=== PATIENT | female | born 1940 | race Caucasian/White ===

== ENCOUNTER 2017-05-19 16:41 | Inpatient (IN) | payer OTHER ==
[~2017-05-19] VITALS: Ht 162.6 cm; Wt 122.5 kg
--- NOTE | 2017-05-19 16:41 | NUR ---
[id number] FROM SNF FOR ALOC, PER EMS GAVE NARCAN TO EYES WERE PINPOINT AND PT RESPONDED. PT CURRENTLY AAOX2, FORGETFUL, NAD NOTED. PT PLACED ON MONITOR. MD AT BEDSIDE.
[2017-05-19] MEDS ORDERED: IV NS 0.9% 500 ML BAG IV ONE (18:00)
[2017-05-19 18:07] LABS: APPEARANCE,URINE Clear (CLEAR); BILIRUBIN,URINE Negative (NEGATIVE); BLOOD, URINE Moderate Ery/uL (NEGATIVE); COLOR,URINE Other (YELLOW); KETONES,URINE Negative (NEGATIVE); LEUKOCYTE ESTERASE ,URINE Moderate (NEGATIVE); NITRITE, URINE Negative (NEGATIVE); PROTEIN,URINE Negative (NEGATIVE); UGLUCOSE Negative (NEGATIVE); UROBILINOGEN,URINE 0.2 EU/dL (0.2)
--- NOTE | 2017-05-19 18:15 | NUR ---
CALLED SNF TO CLARIFY AND C/O OF AB LAB= BUN 88, K OF 6.7, HGB 7.0. MD AWARE. LABS ORDERED.
[2017-05-19 18:17] LABS: BASOPHILS % (AUTO) 0.2 % (0.0-2.0); EOSINOPHILS # (AUTO) 0.1 /CMM (0.0-0.7); EOSINOPHILS % (AUTO) 0.4 % (0.0-6.0); HEMATOCRIT 23 % (33-45); HEMOGLOBIN 7.8 g/dL (11.5-14.8); LYMPHOCYTES # (AUTO) 0.2 /CMM (0.8-4.8); LYMPHOCYTES % (AUTO) 1.7 % (20.0-44.0); MEAN CORPUSCULAR HEMOGLOBIN 32 PG (26.0-33.0); MEAN CORPUSCULAR HGB CONC 34 g/dl (31.0-36.0); MEAN CORPUSCULAR VOLUME 95 fL (82-100); MONOCYTES # (AUTO) 0.8 /CMM (0.1-1.30); MONOCYTES % (AUTO) 6.4 % (2.0-12.0); NEUTROPHILS % (AUTO) 91.3 % (43.0-81.0); PLATELET COUNT (AUTO) 352 /CMM (150-450); RDW COEFFICIENT OF VARIATION 12.7 (11.5-15.0); RED BLOOD CELL COUNT(AUTO) 2.43 MIL/uL (4.0-5.2); WHITE BLOOD COUNT (AUTO) 13.1 K/uL (4.3-11.0)
[2017-05-19 18:21] LABS: BACTERIA,URINE 2+ /HPF (None Seen); SQUAMOUS EPITHELIAL CELL,UR Few /HPF (None Seen); WBC,URINE 21-50 /HPF (0-3)
[2017-05-19] MEDS ORDERED: ENOX30DI PO (18:21)
[2017-05-19] MEDS ORDERED: ASPI-992 PO (18:21)
[2017-05-19] MEDS ORDERED: BISA10SU8 RC (18:21)
[2017-05-19] MEDS ORDERED: FERR325T23 PO (18:21)
[2017-05-19] MEDS ORDERED: SENN-167 PO (18:21)
[2017-05-19] MEDS ORDERED: LOVA20TA2 PO (18:21)
[2017-05-19] MEDS ORDERED: DOCU100C36 PO (18:21)
[2017-05-19] MEDS ORDERED: NIFE60TA69 PO (18:21)
[2017-05-19] MEDS ORDERED: LEVO50TA8 PO (18:21)
[2017-05-19] MEDS ORDERED: FAMO20TA8 PO (18:21)
[2017-05-19] MEDS ORDERED: HYDR-552 PO (18:21)
[2017-05-19] MEDS ORDERED: HYDR12.55 PO (18:21)
[2017-05-19] MEDS ORDERED: TRAZ-144 PO (18:21)
[2017-05-19] MEDS ORDERED: POTA8TAB8 PO (18:21)
[2017-05-19] MEDS ORDERED: NA P133E RC (18:21)
[2017-05-19] MEDS ORDERED: ACET-868 PO (18:21)
[2017-05-19] MEDS ORDERED: TRAM50TA2 PO (18:21)
[2017-05-19] MEDS ORDERED: MAG-5 PO (18:21)
[2017-05-19] MEDS ORDERED: MAGN400O6 PO (18:21)
[2017-05-19 18:33] LABS: ALANINE AMINOTRANSFERASE 14 U/L (12-78); ALBUMIN 1.9 g/dL (3.4-5.0); ALKALINE PHOSPHATASE 544 U/L (46-116); ASPARTATE AMINOTRANSFERASE 46 U/L (15-37); BILIRUBIN,DIRECT 0.4 mg/dL (0.0-0.2); BILIRUBIN,TOTAL 0.7 mg/dL (0.2-1.0); CALCIUM, SERUM 9.3 mg/dL (8.5-10.1); CARBON DIOXIDE 21 mmol/L (21-32); CHLORIDE 101 mmol/L (98-107); CREATININE 7.3 mg/dL (0.6-1.3); GLUCOSE 117 mg/dL (74-106); SODIUM SERUM 133 mmol/L (136-145); TOTAL PROTEIN, SERUM 6.2 g/dL (6.4-8.2)
[2017-05-19 18:36] LABS: POTASSIUM 6.7 mmol/L (3.5-5.1); UREA NITROGEN, BLOOD 106 mg/dL (7-18)
--- NOTE | 2017-05-19 18:43 | NUR ---
[phone] JAHAIRA ALTERNATE NUMBER
--- NOTE | 2017-05-19 18:45 | NUR ---
FAMILY AT BEDSIDE.
[2017-05-19] MEDS ORDERED: DEXTROSE 50%-WATER 50 ML DISP.SYRIN ONE (18:52)
[2017-05-19] MEDS ORDERED: SODIUM POLYSTYRENE SULFONATE 15 G/60 ML BOTTLE ONE ×3 (18:52→23:20)
[2017-05-19] MEDS ORDERED: FUROSEMIDE 20 MG/2 ML VIAL ONE (18:52)
[2017-05-19] MEDS ORDERED: INSULIN REGULAR, HUMAN 100 UNIT/ML 10 ML VIAL ONE (18:53)
[2017-05-19] MEDS ORDERED: SODIUM POLYSTYRENE SULFONATE 15 G/60 ML BOTTLE PO ONE ×2 (19:00→21:30)
[2017-05-19] MEDS ORDERED: ALBUTEROL FS 2.5 MG/3 ML VIAL.NEB NEB ONE (19:00)
[2017-05-19] MEDS ORDERED: IV NS 0.9% 1,000 ML BAG IV ONE (19:00)
[2017-05-19] MEDS ORDERED: INSULIN REGULAR, HUMAN 100 UNIT/ML 10 ML VIAL IV ONE (19:00)
[2017-05-19] MEDS ORDERED: DEXTROSE 50%-WATER 50 ML DISP.SYRIN IV ONE (19:00)
[2017-05-19] MEDS ORDERED: FUROSEMIDE 40 MG/4 ML VIAL IV ONE (19:00)
--- NOTE | 2017-05-19 19:05 | NUR ---
REPORT REC'D FROM MIKY FLEMING FOR JB.
--- NOTE | 2017-05-19 19:07 | NUR ---
PT LEFT FOR CT VIA GURNEY.
--- NOTE | 2017-05-19 19:15 | NUR ---
PT RETURNED FROM CT VIA [facility]
[2017-05-19] MEDS ORDERED: CEFTRIAXONE 1 G VIAL ONE (19:25)
[2017-05-19] MEDS ORDERED: ALBUTEROL FS 2.5 MG/3 ML VIAL.NEB ONE (19:26)
[2017-05-19] MEDS ORDERED: CEFTRIAXONE 1 G in IV NS 0.9% 50 ML IV SCH (19:30)
--- NOTE | 2017-05-19 19:34 | NUR ---
RT AT BEDSIDE FOR BREATHING TX.
--- NOTE | 2017-05-19 19:49 | NUR ---
JULIA ONTIVEROS RN
[2017-05-19 20:00] VITALS: BP_SYST 108; BP_SYST 115; BP_DIAS 42; BP_DIAS 57
[2017-05-19 20:08] VITALS: BP 108/52
--- NOTE | 2017-05-19 20:08 | NUR ---
RN NOTE RECEIVED PATIENT FROM ER, ABLE TO STATE HER NAME HOWEVER, SHE IS CONFUSED/ANXIOUS, REMOVED IV WHILE ER NURSES TRANSFERRED HER FROM [facility] [place] TO [facility], NEW IV WAS PLACED IN RIGHT HAND 22 GAUGE, ONGOING IV FLUIDS, NO RESPIRATORY DISTRESS NOTED, NO PAIN OR DISCOMFORT, SINUS RYTHM 65, ADMITTING DX ACUTE RESPIRATORY FAILURE, ORDERS CARRIED OUT, SKIN PICTURES TAKEN, ALL SAFETY MEASURES TAKEN, CALL LIGHT WITHIN REACH, SIDE RAILES UP X 2, BED ALARM ACTIVATED AND CHECKED PRIOR, WILL CONTINUE TO MONITOR PATIENT
[2017-05-19 21:00] VITALS: BP 125/67
[2017-05-19] MEDS ORDERED: IV 1/2NS 1000 ML 1,000 ML IV ONE (21:00)
[2017-05-19] MEDS: PANTOPRAZOLE 40 MG VIAL IV SCH (22:09)
[2017-05-19] MEDS: HEPARIN SODIUM, PORCINE 5000 UNITS/1 ML VIAL SQ SCH (22:12)
[2017-05-19] MEDS: IV 1/2NS 1000 ML 1,000 ML IV PRN (23:54)
[2017-05-20] VITALS (16 sets, daily range): BP systolic 89–147; BP diastolic 57–90
[2017-05-20 07:06] LABS: EOSINOPHILS # (AUTO) 0.1 /CMM (0.0-0.7); EOSINOPHILS % (AUTO) 0.7 % (0.0-6.0); HEMATOCRIT 21 % (33-45); LYMPHOCYTES # (AUTO) 0.7 /CMM (0.8-4.8); LYMPHOCYTES % (AUTO) 6.3 % (20.0-44.0); MEAN CORPUSCULAR HEMOGLOBIN 31 PG (26.0-33.0); MEAN CORPUSCULAR HGB CONC 33 g/dl (31.0-36.0); MEAN CORPUSCULAR VOLUME 96 fL (82-100); MONOCYTES % (AUTO) 9.3 % (2.0-12.0); NEUTROPHILS # (AUTO) 8.8 /CMM (1.8-8.9); NEUTROPHILS % (AUTO) 83.7 % (43.0-81.0); PLATELET COUNT (AUTO) 345 /CMM (150-450); RDW COEFFICIENT OF VARIATION 14.3 (11.5-15.0); WHITE BLOOD COUNT (AUTO) 10.6 K/uL (4.3-11.0)
[2017-05-20 07:11] LABS: ALANINE AMINOTRANSFERASE 28 U/L (12-78); ALBUMIN 1.8 g/dL (3.4-5.0); ALKALINE PHOSPHATASE 559 U/L (46-116); ASPARTATE AMINOTRANSFERASE 59 U/L (15-37); BILIRUBIN,TOTAL 0.5 mg/dL (0.2-1.0); CALCIUM, SERUM 8.6 mg/dL (8.5-10.1); CARBON DIOXIDE 21 mmol/L (21-32); CHLORIDE 102 mmol/L (98-107); CREATININE 6.7 mg/dL (0.6-1.3); GLUCOSE 123 mg/dL (74-106); POTASSIUM 5.1 mmol/L (3.5-5.1); SODIUM SERUM 138 mmol/L (136-145); TOTAL PROTEIN, SERUM 5.9 g/dL (6.4-8.2)
[2017-05-20 07:16] LABS: UREA NITROGEN, BLOOD 103 mg/dL (7-18)
[2017-05-20 07:20] LABS: HEMOGLOBIN 6.9 g/dL (11.5-14.8)
--- NOTE | 2017-05-20 07:43 | NUR ---
RN NOTE NO ACUTE CHANGES DURING MY SHIFT, SR ON THE MONITOR, ALERT/ORIENTED X 1, CONFUSED AT TIMES, ONGOING IV FLUIDS, TOLERATED WELL, ALL SAFETY MEASURES TAKEN, BILATERAL SOFT WRIST RESTRAINTS, VISUAL CHECKS Q 15 MIN, CHECKED FOR CIRCULATIONS Q 2 HOURS, ENDORSED TO AM SHIFT FOR JB
--- NOTE | 2017-05-20 08:00 | NUR ---
Pt awake, confused, vss. Denies pain. prbc ready for transfusion but pt does not have blood bank red bracelet. blood bank notified to re band the pt. and new order placed in the [facility].
[2017-05-20 08:49] LABS: BAND % (MANUAL) 1 % (0.0-5.0); LYMPHOCYTES % (MANUAL) 5 % (16-48); MONOCYTES % (MANUAL) 11 % (0-11.0); NEUTROPHILS % (MANUAL) 83 (42-76)
[2017-05-20] MEDS ORDERED: ACETAMINOPHEN 325 MG TABLET PO PRN (09:30)
[2017-05-20] MEDS ORDERED: HYDROCODONE/APAP 5/325MG 1 EACH TABLET PO PRN ×2 (09:30)
[2017-05-20] MEDS: PANTOPRAZOLE 40 MG VIAL IV SCH (09:56)
[2017-05-20] MEDS: HEPARIN SODIUM, PORCINE 5000 UNITS/1 ML VIAL SQ SCH ×2 (09:57→21:00)
--- NOTE | 2017-05-20 10:00 | NUR ---
DR CANALES HERE TO SEE PT, SON CONTACTED FOR SR CANALES TO OBTAIN MORE HISTORY. NEW IV SITE R FOREARM # 20.
[2017-05-20] MEDS: LEVOTHYROXINE SODIUM 50 MCG TABLET PO SCH (10:02)
[2017-05-20] MEDS: NIFEdipine XL 60 MG TAB PO SCH (10:25)
--- NOTE | 2017-05-20 10:44 | NUR ---
WOUND CARE CONSULT: PT PRESENTS WITH INCONTINENCE OF STOOL AND RT LEG IMMOBILIZER WITH SURGICAL DSGS TO RT LATERAL LEG, PRESENT ON ADMISSION. SLIGHT GLUTEAL CREASE EXCORIATION NOTED. ALL SKIN PROTECTION RECOMMENDATIONS DISCUSSED WITH NURSING STAFF. PT ON MG ISOFLEX LOW AIRLOSS BED. WILL SEE PRN. CURRENT AMEENA SCORE IS 13. IN AGREEMENT WITH PLAN OF CARE. Addendum: 05/20/17 at 1047 by TAL VERMA WNDNU Amended: Links added.
[2017-05-20] MEDS ORDERED: Z GUARD REMEDY 4 OZ OINT TP PRN (11:00)
[2017-05-20] MEDS: ONDANSETRON HCL/PF 4 MG/2 ML VIAL IV PRN (12:39)
--- NOTE | 2017-05-20 16:00 | NUR ---
2 UNITS PRBC COMPLETED, NO SIGNS AO REACTION ,NO SYMPTOMS FLUID VOLUME OVERLOAD. FAMILY AT BEDSIDE. PT STILL PLEASANTLY CONFUSED.
[2017-05-20] MEDS: CEFTRIAXONE 1 G in IV D5W 50 ML IV SCH (17:49)
--- NOTE | 2017-05-20 18:00 | NUR ---
PT ASSISTED WITH FULL BED/BATH AND SKIN CARE ORDERED.
[2017-05-20] MEDS: Z GUARD REMEDY 4 OZ OINT TP SCH (18:04)
--- NOTE | 2017-05-20 20:00 | NUR ---
ZAHRA RN INITIAL NOTE PT RECEIVED ASLEEP IN BED. A/O X1 EASILY AROUSABLE TO NAME WITH NOTED CONFUSION AT TIMES. ON 2L OF O2 VIA NC AND SATURATING WELL. BREATHING EVEN AND UNLABORED. TELE- SINUS RHYTHM 75 WITH PAC. IV LFA CLEAN, DRY WITH FLUIDS INFUSING. MEJIA CATHETER IN PLACE AND DRAINING BY GRAVITY. HOB ELEVATED. BED IN LOWEST POSITION AND LOCKED IN PLACE. BILATERAL SOFT WRIST RESTRAINTS IN PLACE AND SECURED. NO NOTED DISCOLORATION, PULSES PALPABLE BILATERALLY AND CAP REFILL CHECKED. CALL LIGHT WITHIN REACH. WILL CONTINUE TO MONITOR.
[2017-05-20] MEDS: ATORVASTATIN 10 MG TABLET PO SCH (21:04)
[2017-05-21] VITALS: BP 124/69
[2017-05-21] MEDS: ONDANSETRON HCL/PF 4 MG/2 ML VIAL IV PRN (03:59)
[2017-05-21 04:00] VITALS: BP 124/73
[2017-05-21] MEDS: IV 1/2NS 1000 ML 1,000 ML IV PRN ×2 (06:44→19:00)
--- NOTE | 2017-05-21 07:11 | NUR ---
ZAHRA RN CLOSING NOTE NO ACUTE DISTRESS NOTED. KEPT CLEAN AND DRY. ALL NEEDS ATTENDED TO PROMPTLY. REPOSITIONED Q2H. ALL DUE MEDS GIVEN ORDERED, IV INTACT. BILATERAL SOFT WRIST RESTRAINTS IN PLACE WITH PALPABLE PULSES CHECKED BILATERALLY. CALL LIGHT WITHIN REACH. WILL ENDORSE TO NEXT SHIFT FOR CONTINUITY OF CARE.
[2017-05-21 07:20] LABS: EOSINOPHILS % (AUTO) 0.4 % (0.0-6.0); HEMATOCRIT 28 % (33-45); HEMOGLOBIN 9.4 g/dL (11.5-14.8); LYMPHOCYTES # (AUTO) 0.4 /CMM (0.8-4.8); LYMPHOCYTES % (AUTO) 4.7 % (20.0-44.0); MEAN CORPUSCULAR HEMOGLOBIN 31 PG (26.0-33.0); MEAN CORPUSCULAR HGB CONC 33 g/dl (31.0-36.0); MEAN CORPUSCULAR VOLUME 92 fL (82-100); MONOCYTES # (AUTO) 0.9 /CMM (0.1-1.30); NEUTROPHILS # (AUTO) 7.3 /CMM (1.8-8.9); NEUTROPHILS % (AUTO) 84.9 % (43.0-81.0); PLATELET COUNT (AUTO) 363 /CMM (150-450); RDW COEFFICIENT OF VARIATION 17.1 (11.5-15.0); RED BLOOD CELL COUNT(AUTO) 3.08 MIL/uL (4.0-5.2); WHITE BLOOD COUNT (AUTO) 8.6 K/uL (4.3-11.0)
[2017-05-21 07:35] LABS: CALCIUM, SERUM 8.4 mg/dL (8.5-10.1); CARBON DIOXIDE 23 mmol/L (21-32); CHLORIDE 107 mmol/L (98-107); CREATININE 4.1 mg/dL (0.6-1.3); GLUCOSE 110 mg/dL (74-106); PHOSPHORUS 5.4 mg/dL (2.5-4.9); POTASSIUM 3.9 mmol/L (3.5-5.1); SODIUM SERUM 143 mmol/L (136-145)
[2017-05-21 07:36] LABS: MAGNESIUM 2.1 mg/dL (1.8-2.4)
[2017-05-21 07:37] LABS: UREA NITROGEN, BLOOD 86 mg/dL (7-18)
[2017-05-21 08:00] VITALS: BP 146/88
--- NOTE | 2017-05-21 08:00 | NUR ---
RN NOTES RECEIVED PT FROM [employer], A&0X1 CONFUSED, ON 2L NC SATING WELL NO SOB NOTED. SR ON THE TELE PEDRO PABLO HR 75. MEJIA DRAINING TO GRAVITY. RFA 20G IV INTACT WITH IVF AT 100ML/HR. BED LOCKED AND IN LOWEST POSITION, CALL LIGHT WITHIN REACH, SIDE RAILS UPX3, WILL CONT TO PEDRO PABLO.
[2017-05-21] MEDS: LEVOTHYROXINE SODIUM 50 MCG TABLET PO SCH (08:46)
[2017-05-21] MEDS: NIFEdipine XL 60 MG TAB PO SCH (08:46)
[2017-05-21] MEDS: Z GUARD REMEDY 4 OZ OINT TP SCH (08:47)
[2017-05-21] MEDS: HEPARIN SODIUM, PORCINE 5000 UNITS/1 ML VIAL SQ SCH ×2 (08:47→21:19)
[2017-05-21 12:00] VITALS: BP 104/64
[2017-05-21 16:00] VITALS: BP 114/60
[2017-05-21] MEDS: CEFTRIAXONE 1 G in IV D5W 50 ML IV SCH (18:32)
--- NOTE | 2017-05-21 19:34 | NUR ---
ZAHRA RN INITIAL NOTE PT RECEIVED ASLEEP IN BED. A/O X1 WITH NOTED CONFUSION AT TIMES. ON 2L OF O2 VIA NC AND SATURATING WELL. BREATHING EVEN AND UNLABORED. TELE- SINUS RHYTHM 75 WITH PAC. IV RFA CLEAN, DRY WITH FLUIDS INFUSING. MEJIA CATHETER IN PLACE AND DRAINING BY GRAVITY. HOB ELEVATED. BED IN LOWEST POSITION AND LOCKED IN PLACE. BILATERAL SOFT WRIST RESTRAINTS IN PLACE AND SECURED. NO NOTED DISCOLORATION, PULSES PALPABLE BILATERALLY AND CAP REFILL CHECKED. CALL LIGHT WITHIN REACH. WILL CONTINUE TO MONITOR.
[2017-05-21 20:00] VITALS: BP 118/65
[2017-05-21] MEDS: PANTOPRAZOLE 40 MG VIAL IV SCH (21:10)
[2017-05-21] MEDS: ATORVASTATIN 10 MG TABLET PO SCH (21:11)
[2017-05-22] VITALS: BP 130/67
[2017-05-22 04:00] VITALS: BP 116/65
[2017-05-22] MEDS: IV 1/2NS 1000 ML 1,000 ML IV PRN (05:59)
--- NOTE | 2017-05-22 06:43 | NUR ---
ZAHRA RN CLOSING NOTE REMAINED STABLE DURING SHIFT. ALL NEEDS ATTENDED TO PROMPTLY. KEPT CLEAN AND DRY. NO ACUTE DISTRESS NOTED. REPOSITIONED Q2H. CALL LIGHT WITHIN REACH. WILL ENDORSE TO NEXT SHIFT FOR CONTINUITY OF CARE.
[2017-05-22 07:07] LABS: BASOPHILS # (AUTO) 0.1 /CMM (0.0-0.2); BASOPHILS % (AUTO) 0.6 % (0.0-2.0); EOSINOPHILS # (AUTO) 0.1 /CMM (0.0-0.7); EOSINOPHILS % (AUTO) 0.9 % (0.0-6.0); HEMATOCRIT 28 % (33-45); HEMOGLOBIN 9.1 g/dL (11.5-14.8); LYMPHOCYTES # (AUTO) 0.6 /CMM (0.8-4.8); LYMPHOCYTES % (AUTO) 5.8 % (20.0-44.0); MEAN CORPUSCULAR HEMOGLOBIN 30 PG (26.0-33.0); MEAN CORPUSCULAR HGB CONC 33 g/dl (31.0-36.0); MEAN CORPUSCULAR VOLUME 91 fL (82-100); MONOCYTES # (AUTO) 0.8 /CMM (0.1-1.30); MONOCYTES % (AUTO) 8.4 % (2.0-12.0); NEUTROPHILS # (AUTO) 8.4 /CMM (1.8-8.9); NEUTROPHILS % (AUTO) 84.3 % (43.0-81.0); PLATELET COUNT (AUTO) 415 /CMM (150-450); RDW COEFFICIENT OF VARIATION 16.9 (11.5-15.0); RED BLOOD CELL COUNT(AUTO) 3.08 MIL/uL (4.0-5.2)
[2017-05-22 07:22] LABS: CALCIUM, SERUM 7.9 mg/dL (8.5-10.1); CARBON DIOXIDE 23 mmol/L (21-32); CHLORIDE 108 mmol/L (98-107); CREATININE 2.6 mg/dL (0.6-1.3); GLUCOSE 99 mg/dL (74-106); POTASSIUM 3.7 mmol/L (3.5-5.1); SODIUM SERUM 142 mmol/L (136-145); UREA NITROGEN, BLOOD 73 mg/dL (7-18)
[2017-05-22 08:00] VITALS: BP 118/67
[2017-05-22] MEDS ORDERED: LEVO500T75 PO (08:04)
[2017-05-22] MEDS: Z GUARD REMEDY 4 OZ OINT TP SCH (09:43)
[2017-05-22] MEDS: NIFEdipine XL 60 MG TAB PO SCH (09:44)
[2017-05-22] MEDS: LEVOTHYROXINE SODIUM 50 MCG TABLET PO SCH (09:44)
[2017-05-22] MEDS: HEPARIN SODIUM, PORCINE 5000 UNITS/1 ML VIAL SQ SCH (09:52)
[2017-05-22 12:00] VITALS: BP 132/70
--- NOTE | 2017-05-22 13:45 | NUR ---
RN NOTE PT D/C'D TO [facility], , REPORT GIVEN TO MIKY BOURGEOIS, PT STABLE, EXIT CARE PROVIDED, DISCHARGE INSTRUCTIONS PROVIDED, PT SIGNED PAPERS, BELONGINGS PROVIDED TO PTM Addendum: 05/22/17 at 1520 by BOUCHRA GONZALES RN IV REMOVED, ID REMOVED, F/C LEFT IN PLACE, PICTURES ARE NOT TAKEN DUE TO SHORT NOTICE OF AMBULANCE ARRIVAL. PAPERS AND MED RECON PAPER GIVEN TO AMBULANCE, PT LEFT VIA AMBULANCE.
== END 2017-05-22 13:44 | DRG 682 ==
LOC: ER 16:42 → TELE-TD 20:19 → MEDSG1 05-22 10:10
PROVIDERS: ADMIT Internal Medicine; ATTEND Internal Medicine
PROC: 30233N1 Transfusion of Nonautologous Red Blood Cells into Peripheral Vein, Percutaneous Approach (ICD-10-PCS; principal; 2017-05-20)
DX: N17.9 Acute kidney failure, unspecified (principal); G93.41 Metabolic encephalopathy; E46 Unspecified protein-calorie malnutrition; E87.5 Hyperkalemia; I48.91 Unspecified atrial fibrillation; E88.09 Other disorders of plasma-protein metabolism, not elsewhere classified; N13.8 Other obstructive and reflux uropathy; N31.9 Neuromuscular dysfunction of bladder, unspecified; E66.01 Morbid (severe) obesity due to excess calories; N39.0 Urinary tract infection, site not specified; Z68.42 Body mass index [BMI] 45.0-49.9, adult; N13.6 Pyonephrosis; D64.9 Anemia, unspecified; E78.5 Hyperlipidemia, unspecified; K80.20 Calculus of gallbladder without cholecystitis without obstruction; E03.9 Hypothyroidism, unspecified; E86.0 Dehydration; K21.9 Gastro-esophageal reflux disease without esophagitis; I10 Essential (primary) hypertension; F32.9 Major depressive disorder, single episode, unspecified; E66.9 Obesity, unspecified; Z66 Do not resuscitate; B96.89 Other specified bacterial agents as the cause of diseases classified elsewhere; R74.8 Abnormal levels of other serum enzymes; Z98.890 Other specified postprocedural states
CPT/HCPCS: 36415; 71045-TC; 76770-TC; 80048-TC; 80053-TC; 80076-TC; 81000-TC; 82962-TC; 83735-TC; 84100-TC; 85025-TC; 86850-TC; 86921-TC; 87081-TC; 87086-TC; 87186-TC; A4216; A4606; A6403; C9113; J0696; J1644; J1815; J1940; J2405; J3490; J7030; J7040; J7050; J7060; P9016-BL; Z7610